=== PATIENT | male | born 1990 | race Caucasian/White ===

== ENCOUNTER 2019-06-27 14:51 | Emergency (ER) | payer OTHER, SELFPAY ==
--- NOTE | ~2019-06-27 | XR_ITS ---
EXAMINATION: XR finger 1st RT min 2V INDICATION: Right first finger pain, initial encounter TECHNIQUE: Three views of the right first finger are obtained. COMPARISON: None available FINDINGS: There is an acute, traumatic, open, transverse fracture involving the proximal aspect of th e first distal phalanx. Soft tissue swelling surrounds the fracture. No additional acute osseous abno rmality is evident. IMPRESSION: 1. Acute open fracture of the first distal phalanx. Reviewed, dictated and finalized at location A. SPRINKLER DESIGNER
--- NOTE | ~2019-06-27 | XR_ITS ---
EXAMINATION: XR hand RT min 3V INDICATION: Right hand pain, initial encounter TECHNIQUE: Three views of the right hand are obtained. COMPARISON: None available FINDINGS: There is an acute, traumatic, open, transverse fracture involving the proximal aspect of th e first distal phalanx. Soft tissue swelling surrounds the fracture. No additional acute osseous find ings are seen. The joint spaces are normal. IMPRESSION: 1. Acute open fracture of the first distal phalanx, otherwise normal hand radiographs. Reviewed, dictated and finalized at location A. Y MANAGER IMPRESSION: 1. Acute open fracture of the first distal phalanx, otherwise normal hand radio graphs.
[2019-06-27 15:01] VITALS: BP 122/65; PULSE 80; RESP 18; TEMP 36.2; O2SAT 100
--- NOTE | 2019-06-27 15:22 | ED.WOUNDLAC ---
HPI - Wound/Laceration General Chief Complaint: Wound/Laceration Stated Complaint: right thumb lac Time Seen by Provider: 06/27/19 15:08 History of Present Illness HPI narrative: Patient is a 28-year-old male who presents with crush injury to the right thumb distal phalanx that occurred just prior to arrival patient had the finger caught between 2 objects crushing the digit patient notes his tetanus is up-to-date notes moderate aching pain worse with activity and movement patient has not been seen for this complaint presents per private vehicle patient has not taken anything for his symptoms Related Data Allergies Allergy/AdvReac Type Severity Reaction Status Date / Time No Known Allergies Allergy Verified 06/27/19 15:09 Review of Systems Review of Systems: Narrative: CONSTITUTIONAL: Denies chills, or sweats. SKIN: Positive for crush injury laceration of the right thumb MUSCULOSKELETAL: Denies back pain, joint pain, or myalgia. NEUROLOGIC: Denies numbness or tingling PMFSH Social History Social History (Updated 06/27/19 @ 15:24 by Margarito Smith PA-C) Smoking status: Never smoker Gender identity (if verbalized by the patient): Male Exam Narrative: Exam Narrative: GENERAL: Well-appearing, well-nourished, and in no acute distress. HEAD: Normocephalic, atraumatic. EYES: PERRLA and EOMI. ENT: Nares clear, no rhinorrhea or epistaxis. Mucous membranes moist. EXTREMITIES: Normal range of motion. No edema. Patient with laceration involving the distal phalanx of the right thumb that starts on the dorsal surface and extends to the palmar aspect of the digit SKIN: Warm, dry, no rash. NEURO: No focal deficits. Alert and oriented x3. Cranial nerves II through XII grossly intact. Neurovascularly intact PSYCH: Normal mood and affect. Course Course Emergency Course: Patient in the room aware of case findings treatment plan and diagnosis Consultations Consultation #1: Spoke with Dr. Logan hand surgeon who will follow patient in clinic tomorrow would like the wound to be closed in the emergency department today by myself Vital Signs Vital signs: Vital Signs Temperature 97.1 F L 06/27/19 15:01 Pulse Rate 80 06/27/19 15:01 Respiratory Rate 18 06/27/19 15:01 Blood Pressure 122/65 06/27/19 15:01 Pulse Oximetry 100 06/27/19 15:01 Temperature 97.1 F L 06/27/19 15:01 Pulse Rate 80 06/27/19 15:01 Respiratory Rate 18 06/27/19 15:01 Blood Pressure 122/65 06/27/19 15:01 Pulse Oximetry 100 06/27/19 15:01 Procedures Laceration Laceration 1: Date: 06/27/19 Time: 17:20 Site: upper extremity Side (If applicable): right Description: irregular Depth: simple, single layer Local Anesthetic: lidocaine 1% Pre-repair: wound explored, irrigated and irrigated extensively ====== Skin Level ====== Skin layer closed with: nylon Size (cm): 3-0 and 4-0 Number of sutures: 12 ====== Subcutaneous Layer ====== ====== Muscle Layer ====== ====== Tendon Layer ====== Dressing: Patient's wound was prepped with Shur-Clens scrubbed with copious irrigation after digital block was used for anesthesia patient had closure. Nonadhesive antibiotic ointment 4 x 4 and Coban dressing with metal finger splint post closure MDM - Wound/Laceration MDM Narrative Medical decision making narrative: Patients injury or pain is consistent with musculoskeletal etiology. No signs of neurological or vascular compromise on exam. Compartments and tisues are soft without signs of compartment syndrome. Pain is felt appropriate for further evaluation on an outpatient basis. Imaging Data Radiologist's impression: ITS Impressions Finger X-Ray 06/27/19 15:29 IMPRESSION: 1. Acute open fracture of the first distal phalanx. Hand X-Ray 06/27/19 15:33 IMPRESSION: 1. Acute open fracture of the first distal phalanx, otherwise normal hand
== END 2019-06-27 17:42 | disposition home or self-care (01) ==
PROVIDERS: Emergency Provider Emergency Medicine
DX: S62.521B Displaced fracture of distal phalanx of right thumb, initial encounter for open fracture (principal); W23.0XXA Caught, crushed, jammed, or pinched between moving objects, initial encounter
CPT/HCPCS: 12001; 29130; 73120; 73130; 73140; 96372; 99284; A9270; J0690

== ENCOUNTER → 2019-06-28 17:14 | Outpatient (CLI) | payer OTHER, SELFPAY ==
--- NOTE | ~2019-06-28 | XR_ITS ---
XR finger 1st RT min 2V 06/28/2019 17:33 Indication: Right first finger fracture identified on 06/27/2019 Procedure: 3 views right first finger Comparison: 06/27/2019 Findings: There is an extra-articular fracture of the right first distal phalanx with approximately o ne half bone width ventral displacement. Mild soft tissue swelling. No foreign bodies. No radiopaque foreign bodies. Impression: 1: Stable alignment of transverse extra-articular fracture right first distal phalanx with one half b one width ventral displacement. Reviewed, dictated and finalized at location A. STANT ASSOCIATE PROFESSOR Impression: 1: Stable alignment of transverse extra-articular fracture right first distal p halanx with one half bone width ventral displacement.
== END ==
PROVIDERS: Visit Provider Surgery Plastic and Reconstructive Surgery
DX: S62.521A Displaced fracture of distal phalanx of right thumb, initial encounter for closed fracture (principal)
CPT/HCPCS: 73140

== ENCOUNTER 2019-07-07 01:41 | Day surgery (SDC) | payer OTHER, SELFPAY ==
[2019-06-29 10:48] VITALS: BMI 25.0
--- NOTE | ~2019-07-07 | XR_ITS ---
EXAMINATION: XR surgery orthopedic DATE: 07/07/2019 10:59 INDICATION: Fracture of right hand first distal phalanx. TECHNIQUE: 2 intraoperative spot fluoroscopic views of right thumb were obtained. I was not present. Fluoroscopy exposure time was 40 seconds. COMPARISON: Right thumb radiographs 06/27/2019 FINDINGS: There is an oblique extra articular fracture of first distal phalanx. The distal fracture f ragment demonstrates 1 mm palmar displacement and less than 2 mm distraction. Fixation is seen with 2 percutaneous wires. IMPRESSION: 1. Extra articular oblique fracture of first distal phalanx status post pinning. Reviewed, dictated and finalized at location A. S ROBOT OPERATOR IMPRESSION: 1. Extra articular oblique fracture of first distal phalanx status post pinning .
[2019-07-07 07:29] VITALS: BP 121/75; PULSE 65; RESP 12; TEMP 36.2; O2SAT 99
[2019-07-07] MEDS: LACTATED RINGERS 1,000 ML 30 ML IV CONT (07:50)
[2019-07-07] MEDS: ceFAZolin 2 GM/D5W 50 ML 2 GM/50 ML BAG IVPB (07:50)
--- NOTE | 2019-07-07 08:02 | WPDANESEPPF ---
Anes - Initial Pre Proc Eval Procedure: Operation Date: 07/07/19 09:00 Proposed Procedures p Right Thumb Closed Reduction Percutaneous Pinning Versus Open Reduction Internal Fixation - Jovon Frye MD Date/Time: 07/07/19 08:02 Surgeon: Jovon Frye MD Pre Op Diagnosis: Right Thumb Fracture Patient Data Age: 28 Gender: M Height: 6 ft 1 in Weight: 94 kg Allergies Allergy/AdvReac Type Severity Reaction Status Date / Time No Known Allergies Allergy Verified 06/29/19 10:50 Home Medications Medication Instructions Recorded Confirmed Type cephalexin [Keflex] 500 mg PO Q8H 5 Days #15 cap 06/27/19 06/29/19 Rx hydrocodone-acetaminophen [[place]] 1 tablet PO Q4H PRN #20 tablet 06/27/19 06/29/19 Rx Patient hx anesthesia problems: none Family hx anesthesia problems: none [facility] Social History Social History Smoking status: Never smoker Gender identity (if verbalized by the patient): Male Anes - Eval Final PreProcedure Day of Procedure 07/07/19 08:02 Patient weight: overweight Heart: regular rate and rhythm Lungs: clear to auscultation Airway: Mallampati scale class II Neurological: alert and oriented Last oral intake: >/= 8 hours ASA classification: II Emergent: no Anesthetic plan: proceed Anesthesia type and monitoring: general LMA and standard monitoring Informed Consent: The patient's anesthetic plan and its attendant risks and benefits were discussed with the patient/family/POA. Questions were solicited and answers provided to the satisfaction of the patient/family/POA.
--- NOTE | 2019-07-07 08:10 | WPDHPUPDATE1 ---
History and Physical Update Update Date/Time: 07/07/19 08:10 History and Physical has been reviewed, including an updated exam of the patient. There are NO changes in the patient's condition. Risks, benefits, and alternatives have been discussed and questions answered. Patient agrees to proceed with procedure.
[2019-07-07] MEDS: LIDO 1%/EPINEPHRINE 1:100,000 20 ML VIAL 30 ML INFILTRATE (09:27)
--- NOTE | 2019-07-07 09:35 | P.OP_ITS ---
Procedure Note - Detailed Date of procedure: 07/07/19 Pre-op diagnosis: Right Thumb Fracture Post-op diagnosis: same Procedure performed: Patient was marked in the preoperative holding area with his verification. We did discuss the risks, benefits, alternatives in extensive detail and made sure answered all of his questions prior to proceeding and consent was obtained. Patient was taken the operating room placed supine on operating table. Anesthesia provided by anesthesiology and prepped and draped in standard sterile fashion. Surgical time-out was taken. 1% lidocaine and 0.25% Marcaine with epinephrine was used to provide a digital block. Under C-arm fluoroscopy reduced the f racture into good position and crossed 2 separate 0.035 K-wires. I verified positioning on fluoroscopy. I then placed a Jergens balls. Xeroform fluffs Webril and Ortho Glass splint were placed as a thumb spica followed by a lightly applied Jamel wrap. Patient was woken taken the PACU without difficulty. All instrument sponge counts were correct at the end of the case. Description of procedure: Closed reduction percutaneous pinning right thumb distal phalanx fracture Anesthesia: GLMA Surgeon: Jovon Frye MD Estimated blood loss (mL): 1 Drains: No Packing: No Pathology: none sent Complications: No immediate complications Condition: stable Disposition: PACU Findings: With able to get a good reduction of the transverse fracture of the right thumb distal phalanx. I crossed 2 separate 0.035 K-wires uneventfully. A thumb spica splint was placed. We also removed his sutures today.
[2019-07-07 09:36] VITALS: BP 111/65; PULSE 61; RESP 10; TEMP 36.2; O2SAT 98
[2019-07-07 09:50] VITALS: BP 123/89; PULSE 66; RESP 10; O2SAT 95
[2019-07-07 10:06] VITALS: BP 126/85; PULSE 63; RESP 12; O2SAT 96
[2019-07-07 10:25] VITALS: BP 129/76; PULSE 66
[2019-07-07 10:55] VITALS: BP 114/69; PULSE 69; O2SAT 100
--- NOTE | 2019-07-07 12:02 | SUR.PHASEII ---
[id number] dr dallas returned my call and spoke with the pt
== END 2019-07-07 11:45 | disposition home or self-care (01) ==
PROVIDERS: Visit Provider Surgery Plastic and Reconstructive Surgery
PROC: (CPT 26756; principal; 2019-07-07 09:00)
DX: S62.521A Displaced fracture of distal phalanx of right thumb, initial encounter for closed fracture (principal); W22.09XA Striking against other stationary object, initial encounter
CPT/HCPCS: 26756; 76000; C1713; J0690; J1100; J2250; J2405; J2704; J3010; J7120

== ENCOUNTER → 2019-08-06 08:14 | Outpatient (CLI) | payer OTHER, SELFPAY ==
--- NOTE | ~2019-08-06 | XR_ITS ---
XR finger 1st RT min 2V 08/06/2019 09:02 Indication: Fracture right first distal phalanx Procedure: 3 views right first finger Comparison: 06/28/2019 Findings: There is near-anatomic alignment of the right first distal phalanx transfixed by 2 surgical pins. Fracture fragments in near-anatomic alignment. One of the pins extends into the distal aspect of the proximal phalanx. Impression: 1: Near-anatomic alignment of right first distal phalangeal fracture post internal fixation with 2 renee rgical pins. Reviewed, dictated and finalized at location A. ATCHER SHIP PILOT Impression: 1: Near-anatomic alignment of right first distal phalangeal fracture post inter nal fixation with 2 surgical pins.
== END ==
PROVIDERS: PCP Surgery Plastic and Reconstructive Surgery; Visit Provider Surgery Plastic and Reconstructive Surgery
DX: S62.521A Displaced fracture of distal phalanx of right thumb, initial encounter for closed fracture (principal)
CPT/HCPCS: 73140

== ENCOUNTER → 2019-08-13 09:17 | Outpatient (CLI) | payer OTHER, SELFPAY ==
--- NOTE | ~2019-08-13 | XR_ITS ---
XR finger 1st RT min 2V DATE: 08/13/2019 09:29 INDICATION: Fracture of distal phalanx TECHNIQUE: 3 views COMPARISON: 08/06/2019 right thumb FINDINGS: K wires of first digit have been removed since . There is no significant change in position or alignment at the fracture of the distal phalanx. The fr acture line is still readily evident. Minimal if any new bone formation is evident. IMPRESSION: Removal of K wires Reviewed, dictated and finalized at location A. IMPRESSION: Removal of K wires
== END | disposition home or self-care (01) ==
PROVIDERS: Visit Provider Surgery Plastic and Reconstructive Surgery
DX: S62.521A Displaced fracture of distal phalanx of right thumb, initial encounter for closed fracture (principal); X58.XXXA Exposure to other specified factors, initial encounter
CPT/HCPCS: 73140